=== PATIENT | male | born 2005 | race Caucasian/White ===

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

== ENCOUNTER 2023-05-19 14:27 | Emergency (ER) | payer OTHER, MEDICAID, SELFPAY ==
[2023-05-19 14:52] VITALS: BP 133/74; PULSE 94; RESP 18; TEMP 37.3; O2SAT 97; BMI 27.0
--- NOTE | 2023-05-19 15:02 | ED.FEVER ---
HPI - Fever General Chief Complaint: Fever Stated Complaint: Fever Time Seen by Provider: 05/19/23 14:38 History of Present Illness HPI Narrative: This 17-year-old male comes in reporting for 5 days of recurrent fevers with sore throat. He states that he has an occasional cough. He does not report any shortness of breath. He has been taking ibuprofen or Tylenol with temporary improvement of his fevers. Related Data Home Medications Medication Instructions Recorded Confirmed montelukast 10 mg tablet 10 mg PO .Bedtime 12/26/21 Previous Rx's Medication Instructions Recorded azithromycin 250 mg tablet 250 mg PO DAILY #6 tabs 05/19/23 (Zithromax Z-Jamie) Allergies Allergy/AdvReac Type Severity Reaction Status Date / Time amoxicillin Allergy Unknown Verified 12/26/21 10:04 Clavulanate Allergy Unknown Uncoded 12/26/21 10:04 Review of Systems Status of ROS Reports: 10 or more systems reviewed and unremarkable except as noted in History and below Narrative Constitutional: No fevers, no weight gain or loss. Eyes: No discharge. No vision changes. HENT: No congestion, no ear pain. Sore throat as described above. Cardiovascular: No chest pain, no palpitations. Respiratory: No shortness of breath, no wheezes, no cough. Gastrointestinal: No abdominal pain, no vomiting, no diarrhea. Genitourinary: No dysuria, no hematuria. Musculoskeletal: Normal range of motion. Skin: No rashes, no pruritis. Neurological: No dizziness, weakness, sensory change, speech change. Endo/Heme/Allergies: No bruising or bleeding. No polydipsia. Pysch: no suicidality, no anxiety, no insomnia. All other systems reviewed and are negative. [facility] Medical History (Updated 05/19/23 @ 17:05 by John Barba MD) Routine sports physical exam ?Z02.5 - Encounter for examination for participation in sport (ICD-10) Sore throat ?J02.9 - Acute pharyngitis, unspecified (ICD-10) Pharyngitis ?J02.9 - Acute pharyngitis, unspecified (ICD-10) Knee pain, left ?M25.562 - Pain in left knee (ICD-10) Social History Smoking Status: Never smoker Little interest or pleasure in doing things: not at all Feeling down, depressed, or hopeless: not at all Exam Narrative Exam Narrative: Constitutional: Well-developed, well-nourished, no acute distress. HEENT: Normocephalic, atraumatic. Pharyngeal erythema without exudate or tonsillar hypertrophy. Neck: Normal range of motion. Nontender. Supple. Heart: Regular. No murmurs. Normal rate. Intact distal pulses. Lungs: Clear to auscultation. No chest discomfort. No wheezes, rhonchi, or rales. Abdomen: Normal bowel sounds. Nontender. No rebound tenderness. Genitalia: Deferred. Back: No midline tenderness. Normal range of motion. Extremities: Normal range of motion. No injury. Skin: Intact. No rash. Warm. No erythema or pallor. Neurologic: No altered sensation. No weakness. Alert and oriented. Psychiatric: No suicidality. No anxiety or depression. No insomnia. Nursing notes and vitals signs are reviewed. Const Vital Signs, click to edit/add: Vital Signs - 24 hr 05/19/23 14:52 Temperature 99.2 F Pulse Rate [Pulse Oximeter] 94 Respiratory Rate 18 Blood Pressure [Right Upper Arm] 133/74 Pulse Oximetry 97 Oxygen Delivery Method Room Air Course Vital Signs Vital signs: Initial Vital Signs Temperature 99.2 F 05/19/23 14:52 Temperature Source Temporal Artery Scan 05/19/23 14:52 Pulse Rate 94 05/19/23 14:52 Respiratory Rate 18 05/19/23 14:52 Blood Pressure 133/74 05/19/23 14:52 Blood Pressure Mean 93 05/19/23 14:52 Pulse Oximetry 97 05/19/23 14:52 Oxygen Delivery Method Room Air 05/19/23 14:52 Vital Signs Temperature 99.2 F 05/19/23 14:52 Pulse Rate 94 05/19/23 14:52 Respiratory Rate 18 05/19/23 14:52 Blood Pressure 133/74 05/19/23 14:52 Pulse Oximetry 97 05/19/23 14:52 Oxygen Delivery Method Room Air 05/19/23 14:52 Temperature 99.2 F 05/19/23 14:52 Pulse Rate 94 05/19/23 14:52 Respiratory Rate 18 05/19/23 14:52 Blood Pressure 133/74 05/19/23 14:52 Pulse Oximetry 97 05/19/23 14:52 Oxygen Delivery Method Room Air 05/19/23 14:52 MDM - Fever MDM Narrative Medical decision making narrative: This 17-year-old male comes in reporting fevers recurrent over the past 5 days. He measured temperatures around 102? F. his primary other symptom is sore throat. Nasal swab is negative for COVID, influenza, and RSV. Additionally a oral swab is negative for strep. This patient did receive an oral dose of dexamethasone 10 mg and I decided to prescribe Zithromax seeing the duration of recurrent fevers over the course of these 5 days recently. His symptoms may be due to a virus but given the 5 days of fever I decided to treat with this antibiotic. Lab Data Labs: Lab Results 05/19/23 05/19/23 Range/Units 14:55 15:15 SARS-CoV-2 (PCR) Negative SARS-CoV-2 (Negative) Influenza Type A (PCR) Negative PCR FLU A (Negative) Influenza Type B (PCR) Negative PCR FLU B (Negative) RSV (PCR) Negative PCR RSV (Negative) Group A Strep DNA NOT DETECTED (Not Detectd) Discharge Plan Discharge Clinical Impression: Pharyngitis Patient Disposition: Home, Self-Care Condition: Stable Additional Instructions: Take medication as prescribed. Use [id number] medicines also as needed and directed. Follow up with MD return if worsening. Prescriptions: New azithromycin [Zithromax Z-Jamie] 250 mg tablet 250 mg PO DAILY Qty: 6 0RF No Action montelukast 10 mg tablet 10 mg PO .Bedtime Follow Up/Referrals: Kayode Mustafa MD [Primary Care Provider] - Stand Alone Forms: Hello Curry Info Instructions
[2023-05-19 15:54] LABS: PCR FLU A Negative PCR FLU A (Negative); PCR FLU B Negative PCR FLU B (Negative); PCR RSV Negative PCR RSV (Negative)
[2023-05-19 15:55] LABS: SARS PCR* Negative SARS-CoV-2 (Negative)
[2023-05-19 16:11] LABS: Strep A DNA Probe* NOT DETECTED (Not Detectd)
[2023-05-19] MEDS: dexAMETHasone 10 MG/ML inj PO (17:12)
[2023-05-19 17:15] VITALS: BP 108/68; PULSE 84; RESP 20; TEMP 37.3; O2SAT 96
[2023-05-19 17:20] VITALS: RESP 18
== END 2023-05-19 17:20 | disposition home or self-care (01) ==
PROVIDERS: Emergency Provider Emergency Medicine Emergency Medical Services; PCP Pediatrics
DX: J02.9 Acute pharyngitis, unspecified (principal)
CPT/HCPCS: 87631; 87651; 99282; 99283; 99284; J1100